=== PATIENT | male | born 1990 | race Caucasian/White ===

== ENCOUNTER 2020-11-14 03:59 | Emergency (ER) | payer MEDICAID ==
[~2020-11-14] VITALS: Ht 177.8 cm; Wt 77.0 kg
[2020-11-14 04:37] LABS: BASOPHILS % 0.7 % (0.0-2.0); EOSINOPHILS % 1.4 % (0.0-5.0); HEMATOCRIT. 41.1 % (42.0-52.0); HEMOGLOBIN. 14.4 g/dL (14.0-18.0); LYMPHOCYTES % 34.3 % (20.0-50.0); MEAN CORPUSCULAR HEMOGLOBIN 30.9 pg (28.0-32.0); MEAN CORPUSCULAR VOLUME 88.5 fL (80.0-94.0); MEAN PLATELET VOLUME 8.2 fl (7.4-10.4); MONOCYTES % 7.8 % (2.0-8.0); NEUTROPHILS % 55.8 % (40.0-76.0); PLATELET 261 x1000/uL (130-400); RED BLOOD CELL COUNT 4.65 mill/uL (4.7-6.1); RED CELL DISTRIBUTION WIDTH 13.1 % (11.6-14.6)
[2020-11-14 04:43] LABS: CHLORIDE 108 mEq/L (98-107)
[2020-11-14 04:47] LABS: ETHANOL BLOOD 11 mg/dL
[2020-11-14 05:40] VITALS: BP 126/71
== END 2020-11-14 06:08 | disposition home or self-care (01) ==
LOC: ER 03:59
DX: T40.0X1A Poisoning by opium, accidental (unintentional), initial encounter (principal); Y92.89 Other specified places as the place of occurrence of the external cause
CPT/HCPCS: 36415; 80053; 80307; 80320; 80329; 84443; 85025; 93005; 99284; G0480